=== PATIENT | female | born 1945 | race Caucasian/White ===

== ENCOUNTER 2022-05-09 14:08 | Inpatient (IN) | payer MEDICARE, BC ==
[~2022-05-09] VITALS: Ht 165.1 cm; Wt 71.8 kg
[2022-05-09] MEDS ORDERED: MORPHINE SULFATE 4 MG/ML SYR/VIAL IV ONE (14:15)
[2022-05-09] MEDS ORDERED: ONDANSETRON HCL 4 MG/2 ML VIAL IV ONE (14:15)
[2022-05-09] MEDS ORDERED: SODIUM CHLORIDE 0.9% 1,000 ML IV ONE (16:45)
[2022-05-09 17:37] LABS: Basophils # (auto) 0.2 10 ^3/uL (0-0.2); Eosinophils # (auto) 0 10 ^3/uL (0-0.8); Hematocrit 40.4 % (36.0-46.0); Hemoglobin 13.5 g/dL (12.2-16.2); Lymphocytes # (auto) 0.6 10 ^3/uL (0.4-5.4); Lymphocytes % (auto) 3.8 % (10.0-50.0); Mean Corpuscular Hemoglobin 29.5 pg (28.0-32.0); Mean Corpuscular Hgb Conc. 33.4 g/dL (32.0-36.0); Mean Corpuscular Volume 88.2 fL (80.0-100.0); Monocytes # (auto) 0.7 10 ^3/uL (0-1.3); Monocytes % (auto) 4.7 % (0.0-12.0); Neutrophils # (auto) 13.8 10 ^3/uL (1.6-8.6); Neutrophils % (auto) 90.5 % (37.0-80.0); Red Blood Cells 4.58 10^6/uL (4.0-5.20); Red Cell Distribution Width 13.4 % (11.8-14.3); White Blood Cell 15.2 10^3/uL (4.4-10.8)
[2022-05-09 17:46] LABS: INR 1.13 (0.9-1.15); Partial Thromboplastin Time 30.2 sec (24.6-33.4)
[2022-05-09 17:49] LABS: Albumin 3.5 g/dL (3.4-5.0); Calcium 8.4 mg/dL (8.5-10.1); Potassium 4.1 mmol/L (3.5-5.1)
[2022-05-09 17:51] LABS: Bilirubin, Total 0.3 mg/dL (0.2-1.0); Total Protein 5.7 g/dL (6.4-8.2)
[2022-05-09] MEDS ORDERED: HEPARIN SODIUM (PORCINE) 5000 UNITS/ML 1ML VIAL SC SCH (18:00)
[2022-05-09] MEDS ORDERED: HYDROcodone-ACET 5/325MG TAB PO PRN (18:00)
[2022-05-09] MEDS ORDERED: ACETAMINOPHEN 325 MG TAB PO PRN (18:00)
[2022-05-09] MEDS ORDERED: MORPHINE SULFATE INJ 2 MG/ml SYRG IV PRN (18:00)
[2022-05-09] MEDS ORDERED: FAMOTIDINE 20 MG TAB PO ONE (18:30)
[2022-05-09] MEDS: ONDANSETRON HCL 4 MG/2 ML VIAL IV PRN (23:01)
[2022-05-09 23:49] VITALS: BP 158/76
[2022-05-10] VITALS (8 sets, daily range): BP systolic 104–141; BP diastolic 53–71
[2022-05-10 00:15] LABS: Urine Amorphous Crystal FEW /hpf (None Seen); Urine Bacteria FEW /hpf (None Seen); Urine Blood Negative /uL (Negative); Urine Specific Gravity 1.011 (1.001-1.035); Urine WBC 2 /hpf (0 - 5)
[2022-05-10] MEDS ORDERED: METO25TA93 PO (00:25)
[2022-05-10] MEDS ORDERED: CYCL-837 PO (00:27)
[2022-05-10] MEDS ORDERED: LUBI24CA6 PO (00:28)
[2022-05-10] MEDS ORDERED: POTA10TA51 PO (00:29)
[2022-05-10] MEDS ORDERED: CEL100T PO (00:30)
[2022-05-10] MEDS ORDERED: THYR60TA2 PO (00:31)
[2022-05-10] MEDS ORDERED: MENT1GEL EX (00:32)
[2022-05-10] MEDS ORDERED: GABA100C9 PO (00:32)
[2022-05-10] MEDS: SODIUM CHLOR 0.9% PF (SALINE LOCK) 10ML VIAL/SYR IV SCH ×3 (04:07→15:44)
[2022-05-10] MEDS ORDERED: CYCL-611 PO (08:55)
[2022-05-10] MEDS ORDERED: POTA1TAB64 (08:55)
[2022-05-10] MEDS ORDERED: GAB100C PO (08:55)
[2022-05-10] MEDS ORDERED: ESTR0.1C5 VG (08:55)
[2022-05-10] MEDS ORDERED: CELE1CAP8 PO (08:55)
[2022-05-10] MEDS ORDERED: FAMOTIDINE (10MG/ML) 2ML VL IV ONE (11:33)
[2022-05-10] MEDS ORDERED: ceFAZolin 1GM/50ML 100 ML IV ONE (11:47)
[2022-05-10] MEDS ORDERED: MIDAZOLAM HCL 2MG/2ML 2ml VIAL (1mg/ml) ONE (11:52)
[2022-05-10] MEDS ORDERED: ONDANSETRON HCL 4 MG/2 ML VIAL ONE (11:53)
[2022-05-10] MEDS ORDERED: KETOROLAC TROMETH 30 MG/ML 1ML VIAL ONE (11:53)
[2022-05-10] MEDS ORDERED: PROPOFOL 10 MG/ML 20 ML IV ONE (11:53)
[2022-05-10] MEDS ORDERED: DexAMETHasone SOD PHOS 10MG/1ML VIAL INJ ONE (11:53)
[2022-05-10] MEDS ORDERED: GLYCOPYRROLATE 0.2 MG/ML 1ML VIAL ONE (11:53)
[2022-05-10] MEDS ORDERED: traMADol HCL 50 MG TAB PO PRN (13:00)
[2022-05-10] MEDS ORDERED: OXYCODONE W/ ACETAMINOPHEN 5/325MG TABLET PO PRN ×2 (13:15)
[2022-05-10] MEDS ORDERED: HYDROmorphone HCL 2 MG/ML VL/or syr IV PRN ×2 (13:15→13:30)
[2022-05-10] MEDS ORDERED: METOCLOPRAMIDE HCL 5MG/ml INJ 2ml VIAL IV PRN (13:30)
[2022-05-10] MEDS ORDERED: ONDANSETRON HCL 4 MG/2 ML VIAL IV PRN (13:30)
[2022-05-10] MEDS: GABAPENTIN 100 MG CAP PO SCH ×2 (14:37→21:56)
[2022-05-10] MEDS: SODIUM CHLORIDE 0.9% 1,000 ML IV SCH (15:44)
[2022-05-10] MEDS: traMADol HCL 50 MG TAB PO PRN ×2 (16:08→21:57)
[2022-05-10] MEDS: ONDANSETRON HCL 4 MG/2 ML VIAL IV PRN (17:21)
[2022-05-11] MEDS: SODIUM CHLOR 0.9% PF (SALINE LOCK) 10ML VIAL/SYR IV SCH ×4 (02:59→22:15)
[2022-05-11 05:00] VITALS: BP 129/61
[2022-05-11] MEDS: SODIUM CHLORIDE 0.9% 1,000 ML IV SCH (05:53)
[2022-05-11] MEDS: GABAPENTIN 100 MG CAP PO SCH ×3 (05:54→22:17)
[2022-05-11 06:44] LABS: Basophils # (auto) 0 10 ^3/uL (0-0.2); Basophils % (auto) 0.2 % (0.0-2.0); Eosinophils # (auto) 0 10 ^3/uL (0-0.8); Hematocrit 27.6 % (36.0-46.0); Hemoglobin 9.6 g/dL (12.2-16.2); Lymphocytes # (auto) 0.9 10 ^3/uL (0.4-5.4); Lymphocytes % (auto) 9.4 % (10.0-50.0); Mean Corpuscular Hemoglobin 30.6 pg (28.0-32.0); Mean Corpuscular Hgb Conc. 34.8 g/dL (32.0-36.0); Mean Corpuscular Volume 87.9 fL (80.0-100.0); Monocytes # (auto) 1.2 10 ^3/uL (0-1.3); Neutrophils # (auto) 7.9 10 ^3/uL (1.6-8.6); Neutrophils % (auto) 78.4 % (37.0-80.0); Red Blood Cells 3.14 10^6/uL (4.0-5.20); Red Cell Distribution Width 13.2 % (11.8-14.3)
[2022-05-11 06:58] LABS: BUN/Creatinine Ratio 27.6; Calcium 8.6 mg/dL (8.5-10.1); Potassium 4.3 mmol/L (3.5-5.1)
[2022-05-11] MEDS: THYROID 60 MG TAB PO SCH (07:03)
[2022-05-11 08:00] VITALS: BP 129/49
[2022-05-11] MEDS: traMADol HCL 50 MG TAB PO PRN ×3 (08:49→22:23)
[2022-05-11 09:00] VITALS: BP 129/49
[2022-05-11] MEDS ORDERED: CYCLOBENZAPRINE HCL 10 MG TAB PO SCH (10:00)
[2022-05-11] MEDS ORDERED: THYROID 60 MG TAB PO SCH (10:00)
[2022-05-11] MEDS ORDERED: PATIENTS OWN MEDICATION (Metoprolol Succinate (Metoprolol Succinate Er) 1 TAB) PO SCH (10:00)
[2022-05-11] MEDS: CELECOXIB 100 MG CAP PO SCH (10:00)
[2022-05-11] MEDS ORDERED: LUBIPROSTONE 24 MCG PO SCH (10:00)
[2022-05-11] MEDS: METOPROLOL SUCCINATE XL 50 MG TAB PO SCH (11:04)
[2022-05-11] MEDS: ENOXAPARIN SOD 40 MG/0.4 ML SYRINGE SC SCH (11:06)
[2022-05-11] MEDS ORDERED: HYDROmorphone HCL 2 MG/ML VL/or syr IV PRN (12:30)
[2022-05-11 13:00] VITALS: BP 127/68
[2022-05-11 17:00] VITALS: BP 113/65
[2022-05-11] MEDS: LUBIPROSTONE 24 MCG PO SCH (19:11)
[2022-05-11 22:00] VITALS: BP 109/52
[2022-05-11] MEDS: CYCLOBENZAPRINE HCL 10 MG TAB PO SCH (22:17)
[2022-05-12 05:00] VITALS: BP 118/58
[2022-05-12] MEDS: SODIUM CHLOR 0.9% PF (SALINE LOCK) 10ML VIAL/SYR IV SCH ×3 (06:07→21:10)
[2022-05-12] MEDS: THYROID 60 MG TAB PO SCH (06:08)
[2022-05-12] MEDS: GABAPENTIN 100 MG CAP PO SCH ×3 (06:08→21:08)
[2022-05-12 09:00] VITALS: BP 113/55
[2022-05-12] MEDS: CELECOXIB 100 MG CAP PO SCH (10:14)
[2022-05-12] MEDS: METOPROLOL SUCCINATE XL 50 MG TAB PO SCH (10:20)
[2022-05-12] MEDS: ENOXAPARIN SOD 40 MG/0.4 ML SYRINGE SC SCH (10:20)
[2022-05-12] MEDS: traMADol HCL 50 MG TAB PO PRN (10:22)
[2022-05-12 13:00] VITALS: BP 121/54
[2022-05-12] MEDS ORDERED: ACETAMINOPHEN 325 MG TAB PO PRN (13:30)
[2022-05-12 17:00] VITALS: BP_SYST 112; BP_SYST 99; BP_DIAS 48; BP_DIAS 75
[2022-05-12] MEDS: DOCUSATE SOD 100 MG CAP PO PRN (21:09)
[2022-05-12] MEDS: CYCLOBENZAPRINE HCL 10 MG TAB PO SCH (21:09)
[2022-05-12] MEDS: LUBIPROSTONE 24 MCG PO SCH (21:09)
[2022-05-12 22:00] VITALS: BP 114/49
[2022-05-13] VITALS (9 sets, daily range): BP systolic 109–142; BP diastolic 51–61
[2022-05-13] MEDS: THYROID 60 MG TAB PO SCH (06:34)
[2022-05-13] MEDS: SODIUM CHLOR 0.9% PF (SALINE LOCK) 10ML VIAL/SYR IV SCH ×3 (06:35→22:32)
[2022-05-13] MEDS: GABAPENTIN 100 MG CAP PO SCH ×3 (06:35→22:31)
[2022-05-13] MEDS: METOPROLOL SUCCINATE XL 50 MG TAB PO SCH (09:43)
[2022-05-13] MEDS: CELECOXIB 100 MG CAP PO SCH (09:43)
[2022-05-13] MEDS: ENOXAPARIN SOD 40 MG/0.4 ML SYRINGE SC SCH (09:44)
[2022-05-13 12:27] LABS: Basophils # (auto) 0 10 ^3/uL (0-0.2); Eosinophils # (auto) 0 10 ^3/uL (0-0.8); Eosinophils % (auto) 0.1 % (0.0-7.0); Hemoglobin 7.3 g/dL (12.2-16.2); Neutrophils # (auto) 8.2 10 ^3/uL (1.6-8.6)
[2022-05-13 12:29] LABS: Basophils % (auto) 0.5 % (0.0-2.0); Hematocrit 20.5 % (36.0-46.0); Lymphocytes # (auto) 1.1 10 ^3/uL (0.4-5.4); Lymphocytes % (auto) 10.1 % (10.0-50.0); Mean Corpuscular Hemoglobin 31.2 pg (28.0-32.0); Mean Corpuscular Hgb Conc. 35.8 g/dL (32.0-36.0); Mean Corpuscular Volume 87.2 fL (80.0-100.0); Monocytes # (auto) 1.4 10 ^3/uL (0-1.3); Monocytes % (auto) 12.7 % (0.0-12.0); Neutrophils % (auto) 76.6 % (37.0-80.0); Red Blood Cells 2.35 10^6/uL (4.0-5.20); Red Cell Distribution Width 13.1 % (11.8-14.3); White Blood Cell 10.7 10^3/uL (4.4-10.8)
[2022-05-13 12:41] LABS: Albumin 2.5 g/dL (3.4-5.0); Calcium 7.7 mg/dL (8.5-10.1); Potassium 3.6 mmol/L (3.5-5.1)
[2022-05-13 12:44] LABS: BUN/Creatinine Ratio 24.5
[2022-05-13 12:45] LABS: Bilirubin, Total 0.7 mg/dL (0.2-1.0); Total Protein 4.8 g/dL (6.4-8.2)
[2022-05-13] MEDS: SODIUM CHLORIDE 0.9% 1,000 ML IV SCH (16:02)
[2022-05-13] MEDS: traMADol HCL 50 MG TAB PO PRN (19:52)
[2022-05-13] MEDS: LUBIPROSTONE 24 MCG PO SCH (22:32)
[2022-05-13] MEDS: CYCLOBENZAPRINE HCL 10 MG TAB PO SCH (22:35)
[2022-05-13] MEDS: DOCUSATE SOD 100 MG CAP PO PRN (22:35)
[2022-05-14 05:00] VITALS: BP 119/57
[2022-05-14 06:23] LABS: Basophils # (auto) 0 10 ^3/uL (0-0.2); Basophils % (auto) 0.4 % (0.0-2.0); Eosinophils # (auto) 0 10 ^3/uL (0-0.8); Eosinophils % (auto) 0.3 % (0.0-7.0); Hemoglobin 8.5 g/dL (12.2-16.2); Lymphocytes # (auto) 1.1 10 ^3/uL (0.4-5.4); Lymphocytes % (auto) 13.5 % (10.0-50.0); Mean Corpuscular Hgb Conc. 35.4 g/dL (32.0-36.0); Mean Corpuscular Volume 84.5 fL (80.0-100.0); Neutrophils # (auto) 5.7 10 ^3/uL (1.6-8.6); Neutrophils % (auto) 72.8 % (37.0-80.0); Nucleated Red Blood Cells % 0.1 %; Red Blood Cells 2.84 10^6/uL (4.0-5.20); Red Cell Distribution Width 15.9 % (11.8-14.3); White Blood Cell 7.9 10^3/uL (4.4-10.8)
[2022-05-14] MEDS: THYROID 60 MG TAB PO SCH (06:48)
[2022-05-14] MEDS: SODIUM CHLOR 0.9% PF (SALINE LOCK) 10ML VIAL/SYR IV SCH ×3 (06:48→21:23)
[2022-05-14] MEDS: GABAPENTIN 100 MG CAP PO SCH ×3 (06:48→21:21)
[2022-05-14 06:53] LABS: Potassium 3.8 mmol/L (3.5-5.1)
[2022-05-14] MEDS: SODIUM CHLORIDE 0.9% 1,000 ML IV SCH (06:53)
[2022-05-14 07:07] LABS: BUN/Creatinine Ratio 31.4; Calcium 7.9 mg/dL (8.5-10.1)
[2022-05-14 07:30] VITALS: BP 145/60
[2022-05-14 08:44] VITALS: BP 131/31
[2022-05-14] MEDS: CELECOXIB 100 MG CAP PO SCH (09:41)
[2022-05-14] MEDS: METOPROLOL SUCCINATE XL 50 MG TAB PO SCH (09:42)
[2022-05-14] MEDS: ENOXAPARIN SOD 40 MG/0.4 ML SYRINGE SC SCH (09:43)
[2022-05-14] MEDS ORDERED: PANT40TA2 PO (12:41)
[2022-05-14] MEDS ORDERED: FERR-7 PO (12:41)
[2022-05-14] MEDS ORDERED: RIVA10TA PO (12:41)
[2022-05-14 16:13] VITALS: BP 129/52
[2022-05-14] MEDS: traMADol HCL 50 MG TAB PO PRN (20:26)
[2022-05-14] MEDS: CYCLOBENZAPRINE HCL 10 MG TAB PO SCH (21:21)
[2022-05-14] MEDS: LUBIPROSTONE 24 MCG PO SCH (21:21)
[2022-05-14 22:00] VITALS: BP 120/55
[2022-05-15 05:00] VITALS: BP 113/50
[2022-05-15] MEDS: THYROID 60 MG TAB PO SCH (06:05)
[2022-05-15] MEDS: SODIUM CHLOR 0.9% PF (SALINE LOCK) 10ML VIAL/SYR IV SCH (06:06)
[2022-05-15] MEDS: GABAPENTIN 100 MG CAP PO SCH (06:06)
[2022-05-15 07:30] VITALS: BP 131/38
[2022-05-15 09:00] VITALS: BP 124/53
[2022-05-15] MEDS: ENOXAPARIN SOD 40 MG/0.4 ML SYRINGE SC SCH (09:20)
[2022-05-15] MEDS: CELECOXIB 100 MG CAP PO SCH (09:20)
[2022-05-15] MEDS: METOPROLOL SUCCINATE XL 50 MG TAB PO SCH (09:21)
[2022-05-15 11:18] VITALS: BP 124/53
== END 2022-05-15 11:58 | disposition home health service (06) | DRG 481 ==
LOC: ER 14:08 → EDBD 14:08 → OVERFLOW 18:07 → WEST WING 05-10 00:01
PROVIDERS: ADMIT Internal Medicine; ATTEND Internal Medicine
PROC: 0QS734Z Reposition Left Upper Femur with Internal Fixation Device, Percutaneous Approach (ICD-10-PCS; principal; 2022-05-10 12:02)
PROC: 30233N1 Transfusion of Nonautologous Red Blood Cells into Peripheral Vein, Percutaneous Approach (ICD-10-PCS; 2022-05-13)
DX: S72.22XA Displaced subtrochanteric fracture of left femur, initial encounter for closed fracture (principal); D62 Acute posthemorrhagic anemia; D72.829 Elevated white blood cell count, unspecified; J45.909 Unspecified asthma, uncomplicated; I10 Essential (primary) hypertension; W01.0XXA Fall on same level from slipping, tripping and stumbling without subsequent striking against object, initial encounter; Z20.822 Contact with and (suspected) exposure to COVID-19; E03.9 Hypothyroidism, unspecified; M79.7 Fibromyalgia; Z91.011 Allergy to milk products; Z91.018 Allergy to other foods; Z79.899 Other long term (current) drug therapy; Y93.89 Activity, other specified; Y92.89 Other specified places as the place of occurrence of the external cause; Y99.8 Other external cause status; Z79.01 Long term (current) use of anticoagulants
CPT/HCPCS: 36415; 71045; 72170; 72192; 73502; 76000; 80048; 80053; 81001; 82306; 84443; 84484; 85025; 85610; 85730; 86850; 86900; 86901; 86920; 87426; 93005; 93306; 96361; 96374; 96375; 97110; 97116; 97530; G0378; J0690; J1100; J1885; J2250; J2405; J2704; J3490